=== PATIENT | male | born 1935 | race Caucasian/White ===

== ENCOUNTER 2022-01-09 13:31 | Observation (INO) | payer MEDICARE ==
[2022-01-09 14:19] LABS: Hemoglobin 10.9 g/dL (13.5-17.5); Mean Corpuscular HGB CONC 33.3 g/dL (32.0-36.0); Mean Platelet Volume 11.5 fl (7.4-10.4); Platelet Count 234 10x3/uL (150-450); RBC Distribution Width 15.9 % (11.5-14.5); Red Blood Cell (RBC) Count 3.76 10x6/uL (4.32-5.72); White Blood Cell (WBC) Count 7.7 10x3/uL (3.5-10.5)
[2022-01-09 14:22] LABS: MDiff Complete? YES; Manual Diff?? YES
[2022-01-09 14:39] LABS: Eosinophils 4 % (0-10); Lymphocytes 35 % (21-51); Monocytes 12 % (0-10); Neutrophil 42 % (42-75); Reactive Lymphocytes 4 % (0-10)
[2022-01-09 14:40] LABS: Anisocytosis SLIGHT = 6-15 cells (100X) (0-5/hpf); Hypochromia SLIGHT = 6-15 cells (100X) (0-5/hpf); Macrocytosis SLIGHT = 6-15 cells (100X) (0-5/hpf); Microcytosis SLIGHT = 6-15 cells (100X) (0-5/hpf); Platelet Morphology Comment Appears Adequate
[2022-01-09 14:41] LABS: ALT (SGPT) 13 U/L (8-55); AST (SGOT) 24 U/L (5-34); Albumin 3.6 g/dL (3.4-4.8); Alkaline Phosphatase 41 U/L (40-110); Anion Gap 11 mmol/L (10-20); BUN (Urea Nitrogen) 19 mg/dL (8.4-25.7); Calc. Creatinine Clearance 0 mL/min (70-130); Calcium 9.3 mg/dL (7.8-10.44); Carbon Dioxide 25 mmol/L (23-31); Chloride 104 mmol/L (98-107); Estimated GFR 66; Globulin 3.4 g/dL (2.4-3.5); Glucose 82 mg/dL (83-110); Sodium 136 mmol/L (136-145)
[2022-01-09 14:45] LABS: Crenated RBC SLIGHT = 1-5 cells (100X) (None Seen); Schistocytes SLIGHT = 2-5 cells (100X) (0-1/hpf); Target Cells SLIGHT = 2-5 cells (100X) (0-1/hpf)
[2022-01-09] MEDS ORDERED: Ondansetron ODT 4 MG TAB PO PRN (15:52)
[2022-01-09] MEDS ORDERED: hydrALAZINE 20 MG/ML VIAL SLOW IVP PRN (15:52)
[2022-01-09] MEDS ORDERED: Acetaminophen 325 MG TAB PO PRN (15:52)
[2022-01-09] MEDS ORDERED: Docusate 100 MG CAP PO PRN (15:52)
[2022-01-09] MEDS ORDERED: Electrolyte Replacement Protocol 1 EACH FS PRN (16:00)
[2022-01-09 17:33] LABS: Troponin I Less than 0.010 ng/mL (< 0.028)
[2022-01-09 19:25] LABS: SARS-CoV-2 NAA Rapid Test Not Detected (NotDetected)
[2022-01-09 20:37] LABS: Troponin I Less than 0.010 ng/mL (< 0.028)
[2022-01-09] MEDS: Meclizine HCl 25 MG TAB PO SCH (20:55)
[2022-01-10 04:43] LABS: #Basophils 0.2 10x3/uL (0.0-0.2); #Eosinphils 0.6 10x3/uL (0.0-0.5); #Monocytes 0.9 10x3/uL (0.0-1.1); #Neutrophils 2.7 10x3/uL (1.5-8.4); %Basophils 2.2 % (0.0-2.0); %Eosinophils 9.2 % (0.0-6.0); %Lymphocytes 36.1 % (18.0-47.0); %Monocytes 13.2 % (0.0-10.0); Hemoglobin 11.5 g/dL (13.5-17.5); Mean Corpuscular HGB CONC 34.1 g/dL (32.0-36.0); Mean Corpuscular Hemoglobin 29.2 pg (27.0-33.0); Mean Corpuscular Volume 85.5 fl (81.2-95.1); Mean Platelet Volume 11.7 fl (7.4-10.4); Platelet Count 251 10x3/uL (150-450); RBC Distribution Width 15.6 % (11.5-14.5); Red Blood Cell (RBC) Count 3.94 10x6/uL (4.32-5.72); White Blood Cell (WBC) Count 6.8 10x3/uL (3.5-10.5)
[2022-01-10 04:44] LABS: Anion Gap 15 mmol/L (10-20); BUN (Urea Nitrogen) 20 mg/dL (8.4-25.7); Calc. Creatinine Clearance 41 mL/min (70-130); Calcium 9.3 mg/dL (7.8-10.44); Carbon Dioxide 22 mmol/L (23-31); Chloride 106 mmol/L (98-107); Estimated GFR 74; Glucose 94 mg/dL (83-110); Phosphorus 3.3 mg/dL (2.3-4.7); Potassium 4.1 mmol/L (3.5-5.1); Sodium 139 mmol/L (136-145)
[2022-01-10] MEDS ORDERED: Magnesium 2 GM/50 ML(in water) 2 GM in Premix Bag 1 BAG IVPB SCH (05:00)
[2022-01-10] MEDS: Meclizine HCl 25 MG TAB PO SCH ×2 (06:18→14:36)
[2022-01-10] MEDS ORDERED: Amlodipine 5 MG TAB PO SCH (09:00)
[2022-01-10] MEDS ORDERED: Aspirin 81 mg Enteric Coated Tablet PO SCH (09:00)
[2022-01-10 17:11] VITALS: BP 143/68; TEMP 98.2
== END 2022-01-10 18:00 | disposition home or self-care (01) ==
LOC: CSHERS 13:31 → INTOOBSV 17:22 → CSHTELE 17:22
PROVIDERS: ADMIT Hospitalist; ATTEND Hospitalist
DX: R55 Syncope and collapse (principal); R42 Dizziness and giddiness; R00.1 Bradycardia, unspecified; I25.10 Atherosclerotic heart disease of native coronary artery without angina pectoris; I12.9 Hypertensive chronic kidney disease with stage 1 through stage 4 chronic kidney disease, or unspecified chronic kidney disease; N18.2 Chronic kidney disease, stage 2 (mild); D64.9 Anemia, unspecified; E78.5 Hyperlipidemia, unspecified; Z85.01 Personal history of malignant neoplasm of esophagus; Z87.891 Personal history of nicotine dependence; Z91.14 Patient's other noncompliance with medication regimen; Z79.82 Long term (current) use of aspirin; Z79.899 Other long term (current) drug therapy; Z95.5 Presence of coronary angioplasty implant and graft; Z90.49 Acquired absence of other specified parts of digestive tract; Z90.3 Acquired absence of stomach [part of]; Z20.822 Contact with and (suspected) exposure to COVID-19
CPT/HCPCS: 71045; 80048; 80053; 83735; 83880; 84100; 84484 ×3; 85025 ×2; 93005; 96365; 99285; G0378 ×3; U0002; 36415; J3475